=== PATIENT | male | born 1945 | race Two or more races ===

== ENCOUNTER 2017-12-08 08:29 | Outpatient (CLI) | payer OTHER ==
[~2017-12-08 08:29] MED LIST: ASA81 MG; TOPAMAX25 MG; URETRON D/S TAB1 TAB
== END 2017-12-08 08:39 | disposition home or self-care (01) ==
LOC: RAD 08:29
DX: C67.9 Malignant neoplasm of bladder, unspecified (principal)

== ENCOUNTER 2017-12-11 07:27 | Outpatient (CLI) | payer OTHER | END 2017-12-11 17:00 | disposition home or self-care (01) | LOC: TOM 07:27 | DX: C67.9 Malignant neoplasm of bladder, unspecified (principal) | CPT/HCPCS: 74178; Q9965 ==

== ENCOUNTER 2019-03-22 07:53 | Outpatient (CLI) | payer OTHER | END 2019-03-22 08:03 | disposition home or self-care (01) | LOC: NUCLEAR 07:53 | DX: I82.503 Chronic embolism and thrombosis of unspecified deep veins of lower extremity, bilateral (principal) ==

== ENCOUNTER 2020-05-31 10:33 | Outpatient (CLI) | payer OTHER | END 2020-05-31 10:39 | disposition home or self-care (01) | LOC: MRI 10:33 | PROVIDERS: ATTEND Psychiatry & Neurology Neurology | DX: R41.3 Other amnesia (principal); R41.82 Altered mental status, unspecified | CPT/HCPCS: 70551 ==

== ENCOUNTER 2022-10-31 12:08 | Outpatient (CLI) | payer OTHER | END 2022-10-31 12:18 | disposition home or self-care (01) | LOC: TOM 12:08 | PROVIDERS: ATTEND Psychiatry & Neurology Neurology | DX: M54.2 Cervicalgia (principal); G31.84 Mild cognitive impairment of uncertain or unknown etiology; R42 Dizziness and giddiness; S09.90XA Unspecified injury of head, initial encounter ==

== ENCOUNTER 2023-07-28 11:19 | Outpatient (CLI) | payer OTHER | END 2023-07-28 11:25 | disposition home or self-care (01) | LOC: MRI 11:19 | PROVIDERS: ATTEND Psychiatry & Neurology Neurology | DX: R41.3 Other amnesia (principal) | CPT/HCPCS: 70551 ==

== ENCOUNTER 2023-12-31 08:23 | Outpatient (CLI) | payer OTHER | END 2023-12-31 08:27 | disposition home or self-care (01) | LOC: RAD 08:23 | PROVIDERS: ATTEND Chiropractor | DX: M99.01 Segmental and somatic dysfunction of cervical region (principal); M99.02 Segmental and somatic dysfunction of thoracic region; M99.03 Segmental and somatic dysfunction of lumbar region ==

== ENCOUNTER 2025-01-03 09:13 | Outpatient (CLI) | payer OTHER | END 2025-01-03 09:35 | disposition home or self-care (01) | LOC: RAD 09:13 | PROVIDERS: ATTEND Psychiatry & Neurology Neurology | DX: R41.3 Other amnesia (principal); F33.2 Major depressive disorder, recurrent severe without psychotic features | CPT/HCPCS: 70551 ==

== ENCOUNTER 2025-04-11 07:38 | Outpatient (CLI) | payer OTHER | END 2025-04-11 07:43 | disposition home or self-care (01) | LOC: SONOGRAMA 07:38 | PROVIDERS: ATTEND Internal Medicine Gastroenterology | DX: R74.01 Elevation of levels of liver transaminase levels (principal) ==